=== PATIENT | female | born 2000 | race Caucasian/White ===

== ENCOUNTER 2018-10-13 22:06 | Emergency (ER) | payer BC ==
[~2018-10-13] VITALS: Ht 165.1 cm; Wt 68.2 kg
[2018-10-13 22:46] VITALS: Ht 165.1 cm; Wt 68.2 kg
[2018-10-13 23:30] LABS: HEMATOCRIT 35.8 % (36.0-48.0); HEMOGLOBIN 11.9 g/dL (12-16); LYMPHOCYTES 17.9 % (15-50); MCH 27.2 pg (26.0-34.0); MCHC 33.2 g/dL (31.0-37.0); MCV 81.7 fL (80.0-100.0); MEAN PLATELET VOLUME 12.2 fL (7.4-10.4); NEUTROPHILS 65.2 % (40-80); PLATELET COUNT 138 10x3/uL (130-400); RBC 4.38 10x6/uL (4.00-5.40); WBC 4.9 10x3/uL (4.8-10.8)
[2018-10-13 23:39] LABS: HCG SERUM NEGATIVE (NEGATIVE)
[2018-10-13 23:41] LABS: ALBUMIN 3.8 g/dL (3.4-5.0); ALKALINE PHOSPHATASE 76 U/L (46-116); ALT (SGPT) 23 U/L (10-68); BILIRUBIN - TOTAL 0.16 mg/dL (0.2-1.3); CALC OSMOLALITY 281 mosm/kg (275-300); CALCIUM 8.7 mg/dL (8.5-10.1); CARBON DIOXIDE 27.1 mmol/L (21.0-32.0); CHLORIDE - SERUM 105 mmol/L (98-107); CREATININE - SERUM 0.8 mg/dL (0.6-1.3); GLUCOSE 90 mg/dL (74-106); POTASSIUM - SERUM 3.6 mmol/L (3.5-5.1); PROTEIN - SERUM 7.6 g/dL (6.4-8.2); SODIUM 142 mmol/L (136-145); UREA NITROGEN 10 mg/dL (7-18); eGFR NON AFRICAN AMERICAN > 90 mL/min (90-120)
[2018-10-13 23:42] LABS: APPEARANCE CLEAR (CLEAR); BILIRUBIN NEGATIVE (NEGATIVE); COLOR STRAW (YELLOW); GLUCOSE NEGATIVE (NEGATIVE); KETONE NEGATIVE (NEGATIVE); NITRITE NEGATIVE (NEGATIVE); PROTEIN NEGATIVE (NEGATIVE); SPECIFIC GRAVITY 1.005 (1.005-1.020); UROBILINOGEN NORMAL (NORMAL)
[2018-10-13 23:44] LABS: BACTERIA NONE SEEN /hpf (NONE SEEN); EPITHELIAL CELLS NSEEN /hpf (0-5); RED CELLS - URINE 0-5 /hpf (0-5); WHITE CELLS - URINE NSEEN /hpf (0-5)
[2018-10-14] MEDS ORDERED: PROVERA10 MG PO (00:21)
[2018-10-14 00:25] VITALS: BP 125/74
== END 2018-10-14 00:48 | disposition home or self-care (01) ==
LOC: D.ER 22:06
PROVIDERS: Family Medicine
DX: N93.8 Other specified abnormal uterine and vaginal bleeding (principal)

== ENCOUNTER 2020-05-02 15:33 | Outpatient (CLI) | payer SELFPAY ==
[2018-10-13 22:46] VITALS: BMI 25.0
[~2020-05-02 15:33] MED LIST: PROVERA10 MG PO
[2020-05-02 16:24] LABS: HEMATOCRIT 35.2 % (36.0-48.0); HEMOGLOBIN 11.8 g/dL (12-16); MCH 28.6 pg (26.0-34.0); MCHC 33.5 g/dL (31.0-37.0); MCV 85.4 fL (80.0-100.0); MEAN PLATELET VOLUME 11.7 fL (7.4-10.4); RBC 4.12 10x6/uL (4.00-5.40); RDW 12.2 % (11.5-14.5); WBC 7.4 10x3/uL (4.8-10.8)
[2020-05-02 16:33] LABS: CALC OSMOLALITY 274 mosm/kg (275-300); CALCIUM 8.7 mg/dL (8.5-10.1); CARBON DIOXIDE 22.5 mmol/L (21.0-32.0); CHLORIDE - SERUM 105 mmol/L (98-107); CREATININE - SERUM 0.6 mg/dL (0.6-1.3); GLUCOSE 109 mg/dL (74-106); POTASSIUM - SERUM 3.4 mmol/L (3.5-5.1); SODIUM 138 mmol/L (136-145); UREA NITROGEN 6 mg/dL (7-18); eGFR NON AFRICAN AMERICAN > 90 mL/min (90-120)
[2020-05-02 16:47] LABS: ALT (SGPT) 16 U/L (10-68); URIC ACID 5.2 mg/dL (2.6-7.2)
== END 2020-05-02 17:20 | disposition home or self-care (01) ==
LOC: D.LDO 15:33
PROVIDERS: ATTEND Obstetrics & Gynecology
DX: O35.9XX0 Maternal care for (suspected) fetal abnormality and damage, unspecified, not applicable or unspecified (principal)

== ENCOUNTER 2020-05-09 20:28 | Inpatient (IN) | payer MEDICAID ==
[~2020-05-09] VITALS: Ht 167.6 cm; Wt 84.5 kg
[2020-05-09 21:41] LABS: HEMATOCRIT 35.7 % (36.0-48.0); HEMOGLOBIN 12.1 g/dL (12-16); MCH 28.7 pg (26.0-34.0); MCHC 33.9 g/dL (31.0-37.0); MCV 84.8 fL (80.0-100.0); MEAN PLATELET VOLUME 12.1 fL (7.4-10.4); RBC 4.21 10x6/uL (4.00-5.40); RDW 12.2 % (11.5-14.5); WBC 9.9 10x3/uL (4.8-10.8)
[2020-05-10] MEDS ORDERED: PRENAVITE1 TAB PO (07:46)
[2020-05-10 07:50] VITALS: BP 104/51; Ht 167.6 cm; Wt 84.5 kg
[2020-05-10 09:44] LABS: UDS - AMPHET NEGATIVE QUAL (NEGATIVE); UDS - BARB NEGATIVE QUAL (NEGATIVE); UDS - BENZO NEGATIVE QUAL (NEGATIVE); UDS - COCAINE NEGATIVE QUAL (NEGATIVE); UDS - OPIATE NEGATIVE QUAL (NEGATIVE); UDS - PCP NEGATIVE QUAL (NEGATIVE); UDS - THC NEGATIVE QUAL (NEGATIVE)
[2020-05-11 07:15] LABS: RAPID PLASMA REAGIN Non Reactive (Non Reactive)
== END 2020-05-10 17:40 | disposition home or self-care (01) | DRG 951 ==
LOC: D.LD 20:28
PROVIDERS: ADMIT Obstetrics & Gynecology; ATTEND Obstetrics & Gynecology
DX: Z34.93 Encounter for supervision of normal pregnancy, unspecified, third trimester (principal); Z3A.39 39 weeks gestation of pregnancy

== ENCOUNTER 2020-05-11 07:16 | Outpatient (CLI) | payer MEDICAID ==
[~2020-05-11 07:16] MED LIST changes: +PRENAVITE1 TAB PO
== END 2020-05-11 11:54 | disposition home or self-care (01) ==
LOC: D.LDO 07:16
PROVIDERS: ATTEND Obstetrics & Gynecology
DX: O35.9XX0 Maternal care for (suspected) fetal abnormality and damage, unspecified, not applicable or unspecified (principal)

== ENCOUNTER 2020-05-13 20:21 | Inpatient (IN) | payer MEDICAID ==
[~2020-05-13] VITALS: Ht 167.6 cm; Wt 83.9 kg
[2020-05-13 20:40] VITALS: BP 126/90; Ht 167.6 cm; Wt 83.9 kg
[2020-05-13 21:24] LABS: BASOPHILS 0.1 % (0-2); EOSINOPHILS 0.8 % (0-7); HEMOGLOBIN 11.9 g/dL (12-16); IMMATURE GRANULOCYTES 0.8 % (0-5); LYMPHOCYTES 21.8 % (15-50); MCH 28.2 pg (26.0-34.0); MCHC 33.1 g/dL (31.0-37.0); MCV 85.3 fL (80.0-100.0); MEAN PLATELET VOLUME 12.3 fL (7.4-10.4); MONOCYTES 10.4 % (2-11); NEUTROPHILS 66.1 % (40-80); PLATELET COUNT 164 10x3/uL (130-400); RBC 4.22 10x6/uL (4.00-5.40); RDW 12.1 % (11.5-14.5)
[2020-05-13 21:27] LABS: BILIRUBIN NEGATIVE (NEGATIVE); KETONE NEGATIVE (NEGATIVE); NITRITE NEGATIVE (NEGATIVE); UROBILINOGEN NORMAL mg/dL (< 2)
[2020-05-13 21:44] LABS: UDS - AMPHET NEGATIVE QUAL (NEGATIVE); UDS - BARB NEGATIVE QUAL (NEGATIVE); UDS - BENZO NEGATIVE QUAL (NEGATIVE); UDS - COCAINE NEGATIVE QUAL (NEGATIVE); UDS - OPIATE NEGATIVE QUAL (NEGATIVE); UDS - PCP NEGATIVE QUAL (NEGATIVE); UDS - THC NEGATIVE QUAL (NEGATIVE)
--- NOTE | 2020-05-14 19:44 | NUR ---
PT MOVED TO ROOM 1274 AT THIS TIME.
[2020-05-14 19:48] VITALS: BP 130/76
--- NOTE | 2020-05-14 19:48 | NUR ---
RN TO PT BEDSIDE, VSS. FUNDUS FIRM, MIDLINE, 2 BELOW, SCANT RUBRA LOCHIA, NO CLOTS, NEW GOWN, BRIEFS AND PADS PROVIDED, PT STATES PAIN IS 1-2/10 ON PAIN SCALE TO PERINEUM, PT DENIES ANY NEEDS AT THIS TIME. FOB AT BEDSIDE, INFANT IN CRIB AT THIS TIME.
--- NOTE | 2020-05-14 21:47 | NUR ---
RN TO PT BEDSIDE FOR ROUNDING, PT AND FOB ON COUCH BONDING WITH INFANT. PT DENIES ANY NEEDS AT THIS TIME. PT TO CALL OUT IF SHE HAS ANY NEEDS.
--- NOTE | 2020-05-14 22:56 | NUR ---
RN TO PT BEDSIDE, PT WITH IN HER ARMS, PT REQUESTS MORE PADS AT THIS TIME, PT PROVIDED WITH MORE PADS AND BRIEFS. PT DENIES ANY OTHER NEEDS. SIGNIFICANT OTHER AT BEDSIDE FOR SUPPORT. BED IN LOWEST POSITION, SIDE RAILS UPX2, CALL LIGHT IN REACH.
--- NOTE | 2020-05-15 02:03 | NUR ---
RN TO PT BEDSIDE, PT SLEEPING AT THIS TIME, FOB SLEEPING. PT LEFT ASLEEP AND UNAWAKEN.
--- NOTE | 2020-05-15 03:41 | NUR ---
RN TO PT BEDSIDE FOR ROUNDING, INFANT IN PT'S ARMS, PT DENIES ANY PAIN/DISCOMFORT, FUNDUS IS FIRM, MIDLINE 2 BELOW, SCANT RUBRA LOCHIA, NO CLOTS, PT DENIES ANY NEEDS AT THIS TIME, PT AWARE TO CALL OUT IF SHE NEEDS ANYTHING, BED IN LOWEST POSITION, SIDE RAILS UPX2, CALL LIGHT IN REACH.
[2020-05-15 06:13] LABS: HEMATOCRIT 34.5 % (36.0-48.0); HEMOGLOBIN 11.4 g/dL (12-16); MCV 84.8 fL (80.0-100.0); RBC 4.07 10x6/uL (4.00-5.40); RDW 12.1 % (11.5-14.5); WBC 9.9 10x3/uL (4.8-10.8)
--- NOTE | 2020-05-15 06:33 | NUR ---
RN TO PT BEDSIDE, TYLENOL 1000MG PO ADMINISTERED PER MD ORDERS. FOB AT BEDSIDE ASLEEP, MOTHER IN BED BONDING WITH . PT DENIES ANY NEEDS AT THIS TIME.
[2020-05-15 07:11] VITALS: BP 119/61
--- NOTE | 2020-05-15 07:11 | NUR ---
PT SITTING UP IN BED. VSS. HRRR WITHOUT AUDIBLE MURMUR. BBS CLEAR. BS X 4. ABDOMEN SOFT/NON-DISTENDED. FUNDUS FIRM AT U/U. RUBRA LOCHIA SMALL AMT. LABIA WITH MILD EDEMA NOTED. PT DENIES HEAVY BLEEDING OR PASSING CLOTS. NEG HOMANS' SIGN. PPP. SR UP X 2. CALL LIGHT IN REACH. INFANT RETURNED TO NURSERY PER PT REQUEST TO REST.
[2020-05-15 07:15] LABS: RAPID PLASMA REAGIN Non Reactive (Non Reactive)
--- NOTE | 2020-05-15 07:45 | NUR ---
DR BOWDEN VISITS WITH PT.
--- NOTE | 2020-05-15 08:59 | NUR ---
PT LYING SUPINE IN BED. EYES CLOSED. RESP NON-LABORED. PT NOT DISTURBED TO ALLOW FOR REST.
--- NOTE | 2020-05-15 10:25 | NUR ---
PT SITTING UP IN BED. INFANT. C/O PAIN TO PERINEUM. TORADOL 10 MG GIVEN PO ORDERED.
--- NOTE | 2020-05-15 11:30 | NUR ---
PT LYING SUPINE IN BED. VISITS WITH SO. DENIES C/O OR NEEDS. SR UP X 2. CALL LIGHT IN REACH.
--- NOTE | 2020-05-15 12:47 | NUR ---
SL DC'D WITH [facility] INTACT. PRESSURE BANDAGE TO SITE. PT MURIEL WELL.
--- NOTE | 2020-05-15 15:30 | NUR ---
DISCHARGE INSTRUCTIONS GIVEN TO PT PT VERBALIZES UNDERSTANDING OF ALL INSTRUCTIONS. COPIES GIVEN TO PT. PT PREPARES FOR DISCHARGE.
--- NOTE | 2020-05-15 16:33 | NUR ---
PT READY FOR DISCHARGE. DISCHARGED WITH IN STABLE CONDITION VIA WHEELCHAIR PER Alf MICHELLE RN TO PRIVATE VEHICLE.
== END 2020-05-15 16:33 | disposition home or self-care (01) | DRG 807 ==
LOC: D.LD 20:21
PROVIDERS: ADMIT Obstetrics & Gynecology; ATTEND Obstetrics & Gynecology
PROC: 10E0XZZ Delivery of Products of Conception, External Approach (ICD-10-PCS; principal; 2020-05-14)
PROC: 0HQ9XZZ Repair Perineum Skin, External Approach (ICD-10-PCS; 2020-05-14)
DX: O70.0 First degree perineal laceration during delivery (principal); Z37.0 Single live birth; Z3A.39 39 weeks gestation of pregnancy